=== PATIENT | male | born 1995 | race Caucasian/White ===

== ENCOUNTER 2016-06-30 23:35 | Emergency (ER) | payer SELFPAY ==
[~2016-06-30] VITALS: Ht 188 cm; Wt 80.0 kg
[2016-06-30 23:38] VITALS: BP 151/74; PULSE 123; RESP 22; TEMP 98.7; O2SAT 100
[2016-06-30] MEDS ORDERED: LORazepam 2 MG/ML VIAL IV PUSH ONE (23:45)
[2016-06-30] MEDS ORDERED: SODIUM CHLOR 0.9% 1000 ML INJ 1,000 ML IV ONE (23:45)
[2016-06-30] MEDS ORDERED: MIDAZOLAM HCL 5 MG/ML VIAL (1 ML) ONE (23:47)
[2016-07-01] MEDS ORDERED: MIDAZOLAM HCL 2 MG/2 ML VIAL IV PUSH ONE
[2016-07-01] MEDS ORDERED: diphenhydrAMINE HCL 50 MG/ML VIAL IV PUSH ONE (00:15)
[2016-07-01 00:19] LABS: AUTOMATED NEUTROPHIL # 12.3 TH/MM3 (1.8-7.7); BASOPHIL # 0.3 TH/MM3 (0-0.2); BASOPHIL % 1.9 % (0.0-2.0); EOSINOPHIL # 0.2 TH/MM3 (0-0.4); EOSINOPHIL % 1.5 % (0.0-4.0); HEMATOCRIT 47.5 % (39.0-51.0); LYMPH % 9.8 % (9.0-44.0); LYMPHOCYTE # 1.5 TH/MM3 (1.0-4.8); MEAN CELL VOLUME 88.8 FL (80.0-100.0); MEAN CORPUSCULAR HEMOGLOBIN 30.5 PG (27.0-34.0); MEAN CORPUSCULAR HGB CONC 34.4 % (32.0-36.0); NEUT % 81.8 % (16.0-70.0); PLATELET COUNT 276 TH/MM3 (150-450); RED BLOOD COUNT 5.34 MIL/MM3 (4.50-5.90); RED CELL DISTRIBUTION WIDTH 13.3 % (11.6-17.2); WHITE BLOOD COUNT 15.1 TH/MM3 (4.0-11.0)
[2016-07-01 00:35] LABS: HEMO FLAGS AUTO DIFF
[2016-07-01 00:37] LABS: ALT (GPT) 54 U/L (12-78); ANION GAP 10 MEQ/L (5-15); AST (GOT) 38 U/L (15-37); BICARBONATE 27.8 MEQ/L (21.0-32.0); BLOOD UREA NITROGEN 14 MG/DL (7-18); CHLORIDE 102 MEQ/L (98-107); GLOMERULAR FILTRATION RATE 73 ML/MIN (>89); POTASSIUM 3.7 MEQ/L (3.5-5.1); SODIUM (NA) 140 MEQ/L (136-145)
[2016-07-01 00:39] LABS: ALKALINE PHOSPHATASE 78 U/L (45-117); CREATINE KINASE 279 U/L (39-308); TOTAL BILIRUBIN ADULT 0.6 MG/DL (0.2-1.0)
--- NOTE | 2016-07-01 00:59 | PD ---
HPI Chief Complaint: Alcohol/Drug Intoxication Time Seen by Provider: 23:38 Travel History International Travel<30 days: No Contact w/Intl Traveler<30days: No Traveled to known affect area: No History of Present Illness HPI Patient is a 21 year old male BIBEMS after being found unconscious. Patient admits to using alcohol and cocaine tonight. He says he was tired so he laid down. He denies any trauma. He denies hitting his head. He does have swelling to his right hand, and says this always happens when he punches something. Patient is uncooperative at this time. He says he wants to leave. [facility] Past Medical History Medical History: Unable to Obtain Tetanus Vaccination: Unknown Past Surgical History Surgical History: Unable to Obtain Social History Alcohol Use: Yes Tobacco Use: No Substance Use: Yes Allergies-Medications (Allergen,Severity, Reaction): Coded Allergies: No Known Allergies (Unverified , 06/30/16) Review of Systems ROS Limitations: Intoxication HENT: No: Headaches Cardiovascular: No: Chest Pain or Discomfort Musculoskeletal: No: Pain Physical Exam Narrative GENERAL: Awake and alert, in no acute distress. SKIN: Warm and dry. HEAD: Atraumatic. Normocephalic. EYES: Pupils equal and round. No scleral icterus. Large pupils, reactive to light, extraocular movements intact. ENT: No nasal bleeding or discharge. Mucous membranes pink and moist. NECK: Trachea midline. No JVD. CARDIOVASCULAR: Tachycardia. No murmur appreciated. RESPIRATORY: No accessory muscle use. Clear to auscultation. Breath sounds equal bilaterally. MUSCULOSKELETAL: No obvious deformities. No clubbing. No cyanosis. Swelling to right third knuckle with small abrasion present. Full range of motion of all the fingers. Sensation and capillary refill intact. NEUROLOGICAL: Awake and alert. No obvious cranial nerve deficits. Motor grossly within normal limits. Normal speech. PSYCHIATRIC: Appropriate mood and affect; insight and judgment normal. Data Data Last Documented VS Vital Signs Date Time Temp Pulse Resp B/P Pulse Ox O2 Delivery O2 Flow Rate FiO2 06/30/16 23:42 123 06/30/16 23:38 98.7 22 151/74 100 Orders Complete Blood Count With Diff (06/30/16 23:38) Comprehensive Metabolic Panel (06/30/16 23:38) Creatine Kinase (Cpk) (06/30/16 23:38) Lorazepam Inj (Ativan Inj) (06/30/16 23:45) Sodium Chlor 0.9% 1000 Ml Inj (Ns 1000 M (06/30/16 23:45) Midazolam Inj (Versed Inj) (07/01/16 00:00) Midazolam Inj (Versed Inj) (06/30/16 23:47) Hand, Complete ([id number]) (07/01/16 ) Diphenhydramine Inj (Benadryl Inj) (07/01/16 00:15) Drug Screen, Random Urine (07/01/16 01:05) Labs Laboratory Tests Test 06/30/16 07/01/16 23:45 00:30 White Blood Count 15.1 TH/MM3 Red Blood Count 5.34 MIL/MM3 Hemoglobin 16.3 GM/DL Hematocrit 47.5 % Mean Corpuscular Volume 88.8 FL Mean Corpuscular Hemoglobin 30.5 PG Mean Corpuscular Hemoglobin 34.4 % Concent Red Cell Distribution Width 13.3 % Platelet Count 276 TH/MM3 Mean Platelet Volume 8.3 FL Neutrophils (%) (Auto) 81.8 % Lymphocytes (%) (Auto) 9.8 % Monocytes (%) (Auto) 5.0 % Eosinophils (%) (Auto) 1.5 % Basophils (%) (Auto) 1.9 % Neutrophils # (Auto) 12.3 TH/MM3 Lymphocytes # (Auto) 1.5 TH/MM3 Monocytes # (Auto) 0.7 TH/MM3 Eosinophils # (Auto) 0.2 TH/MM3 Basophils # (Auto) 0.3 TH/MM3 CBC Comment AUTO DIFF Differential Comment AUTO DIFF CONFIRMED Sodium Level 140 MEQ/L Potassium Level 3.7 MEQ/L Chloride Level 102 MEQ/L Carbon Dioxide Level 27.8 MEQ/L Anion Gap 10 MEQ/L Blood Urea Nitrogen 14 MG/DL Creatinine 1.25 MG/DL Estimat Glomerular Filtration 73 ML/MIN Rate Random Glucose 87 MG/DL Calcium Level 8.6 MG/DL Total Bilirubin 0.6 MG/DL Aspartate Amino Transf 38 U/L (AST/SGOT) Alanine Aminotransferase 54 U/L (ALT/SGPT) Alkaline Phosphatase 78 U/L Total Creatine Kinase 279 U/L Total Protein 8.0 GM/DL Albumin 4.6 GM/DL Urine Opiates Screen NEG Urine Barbiturates Screen NEG Urine Amphetamines Screen POS Urine Benzodiazepines Screen POS Urine Cocaine Screen POS Urine Cannabinoids Screen NEG MDM Medical Decision Making Medical Screen Exam Complete: Yes Emergency Medical Condition: Yes Medical Record Reviewed: Yes Differential Diagnosis intoxication vs psychosis vs rhabdo Narrative Course Patient is a 21 year old male BIBEMS because he was found unconscious. Patient originally acting very strange and paranoid. IV established, labs sent, given IVF. Given Ativan, Versed. 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 Eventually, patient became more lucid. He says he thinks someone put something in his drink. He was very paranoid and he says it feels like it was a dream. He has no complaints at this time. Patient is now alert and oriented. Friends are here to help him get home. Advised to avoid drug use. Advised to drink plenty of fluids. Follow up with your primary doctor. Return to the ED as needed for any worsening symptoms. Diagnosis Primary Impression: Intoxication by drug Qualified Code: F19.921 - Intoxication by drug, with delirium Patient Instructions: Cocaine Abuse (ED), General Instructions Additional Instructions: Avoid drug use. Drink plenty of fluids. Return to the ED as needed for any worsening symptoms. Disposition: 01 DISCHARGE HOME Condition: Stable Kate Chan MD Jul 01, 2016 00:59
[2016-07-01 01:31] LABS: SCAN/DIFF AUTO DIFF CONFIRMED
[2016-07-01 01:35] LABS: AMPHETAMINE, URINE POS (NEG); BARBITURATES, URINE NEG (NEG); COCAINE, URINE POS (NEG)
== END 2016-07-01 02:10 | disposition home or self-care (01) ==
LOC: NEPE 23:35
DX: F15.121 Other stimulant abuse with intoxication delirium (principal); F14.90 Cocaine use, unspecified, uncomplicated; F13.121 Sedative, hypnotic or anxiolytic abuse with intoxication delirium; M79.89 Other specified soft tissue disorders
CPT/HCPCS: 80053; 80307; 82550; 85025; 96374; 96375; 99284; J2060; J2250; J7030